=== PATIENT | female | born 1980 | race Hispanic/Latino ===

== ENCOUNTER 2017-02-03 12:35 | Emergency (ER) | payer SELFPAY | END 2017-02-03 14:15 | disposition home or self-care (01) | LOC: NAV ERS 12:35 | DX: S90.822A Blister (nonthermal), left foot, initial encounter (principal); I10 Essential (primary) hypertension; R56.9 Unspecified convulsions; G43.909 Migraine, unspecified, not intractable, without status migrainosus; F17.210 Nicotine dependence, cigarettes, uncomplicated; F41.9 Anxiety disorder, unspecified; F32.9 Major depressive disorder, single episode, unspecified; Z79.899 Other long term (current) drug therapy; X58.XXXA Exposure to other specified factors, initial encounter | CPT/HCPCS: 99283 ==

== ENCOUNTER 2018-07-05 14:36 | Emergency (ER) | payer MEDICAID ==
--- NOTE | 2018-07-05 15:40 | RAD ---
LEFT FOURTH FINGER 2 VIEWS: Date: 07/05/18 HISTORY: 37-year-old female with history of twisting injury to the fourth finger of the left hand. FINDINGS: No evidence for overt acute fracture or dislocation on this limited 2 view study. If the patient has persistent or worsening pain or symptoms referable to the fourth finger, a follow- up study in 5-7 days to include 3 or 4 views, or additional imaging, might be considered. POS: [facility]
--- NOTE | 2018-07-05 15:41 | RAD ---
RIGHT WRIST 3 VIEWS: Date: 07/05/18 HISTORY: 37-year-old female with history of right wrist injury from trauma. FINDINGS: There appears to be some minimal soft tissue swelling over the distal ulna. No evidence for acute fra cture or dislocation. IMPRESSION: Focal soft tissue swelling over the ulna distally. No fracture or dislocation. POS: [facility]
== END 2018-07-05 15:52 | disposition home or self-care (01) ==
LOC: NAV ERS 14:36
DX: S63.501A Unspecified sprain of right wrist, initial encounter (principal); S63.615A Unspecified sprain of left ring finger, initial encounter; H61.21 Impacted cerumen, right ear; G40.909 Epilepsy, unspecified, not intractable, without status epilepticus; G43.909 Migraine, unspecified, not intractable, without status migrainosus; F32.9 Major depressive disorder, single episode, unspecified; F41.9 Anxiety disorder, unspecified; F17.210 Nicotine dependence, cigarettes, uncomplicated; I10 Essential (primary) hypertension; X50.1XXA Overexertion from prolonged static or awkward postures, initial encounter; Z79.899 Other long term (current) drug therapy

== ENCOUNTER 2018-07-20 09:44 | Emergency (ER) | payer MEDICAID ==
--- NOTE | 2018-07-20 11:24 | CT ---
CT OF THE TEMPORAL BONES: Date: 07/20/18 COMPARISON: None. HISTORY: 37-year-old female with right facial trauma, right ear discomfort, decreased hearing. TECHNIQUE: Serial axial CT imaging is obtained at 0.63 mm intervals through the temporal bones without contrast. Coronal reformatted imaging obtained. FINDINGS: Partially imaged paranasal sinuses appear grossly unremarkable. Right Temporal Bone: The internal auditory canal, cochlea, vestibule, vestibular aqueducts, and semicircular canals appear within normal limits. There is near complete opacification of the mastoid air cells on the right. Course of the facial nerve on the right appears grossly unremarkable. No fracture is evident. There is soft tissue density in Prussak's space. There is no significant blunting of the scutum. No e vidence for osseous dehiscence is seen. The ossicles appear intact. There is abnormal soft tissue den sity medial to and inferior to the ossicles. There is also increased soft tissue density on either si de of the pyramidal eminence involving the sinus tympani and the facial nerve recess. Left Temporal Bone: Internal auditory canal, cochlea, vestibule, vestibular aqueduct, and semicircular canals are unremar kable. Course of the facial nerve is unremarkable. The mastoid air cells are well aerated. Prussak's space is clear. The scutum is sharp. The ossicles appear intact and there is no evidence fo r osseous dehiscence. IMPRESSION: 1. Partial opacification of tympanic cavity and mastoid air cells on the right. Findings may be on t he basis of otomastoiditis. Cholesteatoma cannot be excluded given soft tissue density in Prussak's s pace. No fracture is noted. 2. Unremarkable appearance of the left temporal bone. POS: [facility]
== END 2018-07-20 11:40 | disposition home or self-care (01) ==
LOC: NAV ERS 09:44
DX: H70.91 Unspecified mastoiditis, right ear (principal); G43.909 Migraine, unspecified, not intractable, without status migrainosus; F41.9 Anxiety disorder, unspecified; F32.9 Major depressive disorder, single episode, unspecified; F17.210 Nicotine dependence, cigarettes, uncomplicated; Z79.899 Other long term (current) drug therapy
CPT/HCPCS: 70480

== ENCOUNTER 2020-02-26 20:49 | Emergency (ER) | payer OTHER ==
[2020-02-26] MEDS ORDERED: Bacitracin 1 PK ONE (21:04)
== END 2020-02-26 21:12 | disposition home or self-care (01) ==
LOC: NAV ERS 20:49
DX: S61.411D Laceration without foreign body of right hand, subsequent encounter (principal); F41.9 Anxiety disorder, unspecified; F32.9 Major depressive disorder, single episode, unspecified; F17.210 Nicotine dependence, cigarettes, uncomplicated; W25.XXXD Contact with sharp glass, subsequent encounter